=== PATIENT | male | born 1985 | race American Indian/Alaskan Native ===

== ENCOUNTER 2019-05-03 23:58 | Emergency (ER) | payer SELFPAY ==
[2019-05-04 00:23] VITALS: BP 145/88
[2019-05-04] MEDS ORDERED: ASPIRIN 325 MG TAB PO ONE (00:24)
--- NOTE | 2019-05-04 00:47 | XRay Report ---
CHEST 1 VIEW INDICATION: Chest Pain. COMPARISON: None. FINDINGS: Support devices: None. Heart: Normal. Lungs/Pleura: No acute pulmonary or pleural findings. IMPRESSION: 1. No acute findings. Signer Name: Deniz Cruz MD Signed: 05/04/2019 12:42 AM Workstation Name: [id number]
--- NOTE | 2019-05-04 00:50 | Emergency Department Report ---
ED General Adult HPI - General Chief complaint: Chest Pain Stated complaint: CHEST PAIN Time Seen by Provider: 05/04/19 00:22 Source: patient, EMS ( EMS documentation not available at time of chart dictation ), RN notes reviewed, old records reviewed Mode of arrival: Stretcher Limitations: No Limitations - History of Present Illness Initial comments: Patient is a 33-year-old gentleman who is not known to myself previously. He has a history of asthma exacerbation, pneumothorax and chest tube. He presents to the ER today with a complaint of resolved wheezing, and associated central chest tightness and left-sided chest wall tightness. His tightness increases with deep inspiration, and decreases with rest. He denies headache, neck pain, vomiting, diaphoresis, recent aspirin consumption. He denies oral contraceptive use, leg pain or leg swelling, surgery, and he denies DVT and pulmonary embolism risk factors. There is no family history of heart disease or pulmonary embolism that he is aware of. At the moment, all of his symptoms have resolved, and he is currently playing on his cellular phone. -: Gradual Location: chest Radiation: back Severity scale (0 -10): 6 Quality: aching Consistency: now resolved Improves with: none Worsens with: other (Chest discomfort increased with deep inspiration) - Related Data Previous Rx's Medication Instructions Recorded Last Taken Type predniSONE [Deltasone] 50 mg PO QDAY #5 tab 07/16/13 11/26/13 Rx Albuterol Sulfate [Proventil HFA] 1 - 2 puff IH Q4H PRN #1 hfa.aer.ad 11/26/13 Unknown Rx Azithromycin [Zithromax Z-OSMANI] 250 mg PO DAILY #6 tablet 11/26/13 Unknown Rx Fluticasone/Salmeterol [Advair 1 puff IH BID #1 disk.w.dev 11/26/13 Unknown Rx Diskus 250-50 mcg] predniSONE [Prednisone] 40 mg PO DAILY #5 tablet 11/26/13 Unknown Rx Albuterol Sulfate [Proair 90 mcg IH Q4HR PRN #2 aer.pow.ba 05/04/19 Unknown Rx Respiclick] Ibuprofen [Motrin] 600 mg PO Q8H PRN #30 tablet 05/04/19 Unknown Rx Allergies Allergy/AdvReac Type Severity Reaction Status Date / Time iodine Allergy Itching Verified 05/04/19 00:13 ED Review of Systems ROS: Stated complaint: CHEST PAIN Other details as noted in HPI Constitutional: denies: fever Eyes: denies: eye discharge ENT: denies: congestion Respiratory: wheezing Cardiovascular: denies: syncope Gastrointestinal: denies: abdominal pain Genitourinary: as per HPI Musculoskeletal: as per HPI Skin: as per HPI Neurological: as per HPI Psychiatric: as per HPI Hematological/Lymphatic: as per HPI ED Past Medical Hx - Past Medical History Hx Asthma: Yes Additional medical history: intubations - Surgical History Additional Surgical History: bilateral pneumothorax with chest tubes - Social History Smoking Status: Never Smoker Substance Use Type: None - Medications Home Medications: Home Medications Medication Instructions Recorded Confirmed Last Taken Type predniSONE [Deltasone] 50 mg PO QDAY #5 tab 07/16/13 11/26/13 11/26/13 Rx Albuterol Sulfate [Proventil HFA] 1 - 2 puff IH Q4H PRN #1 hfa.aer.ad 11/26/13 Unknown Rx Azithromycin [Zithromax Z-OSMANI] 250 mg PO DAILY #6 tablet 11/26/13 Unknown Rx Fluticasone/Salmeterol [Advair 1 puff IH BID #1 disk.w.dev 11/26/13 Unknown Rx Diskus 250-50 mcg] predniSONE [Prednisone] 40 mg PO DAILY #5 tablet 11/26/13 Unknown Rx Albuterol Sulfate [Proair 90 mcg IH Q4HR PRN #2 aer.pow.ba 05/04/19 Unknown Rx Respiclick] Ibuprofen [Motrin] 600 mg PO Q8H PRN #30 tablet 05/04/19 Unknown Rx ED Physical Exam - General Limitations: No Limitations General appearance: alert, in no apparent distress - Head Head exam: Present: atraumatic, normocephalic - Eye Eye exam: Present: normal appearance, EOMI. Absent: nystagmus - ENT ENT exam: Present: normal exam, normal orophraynx, mucous membranes moist, normal external ear exam - Neck Neck exam: Present: normal inspection, full ROM. Absent: tenderness, meningismus - Respiratory Respiratory exam: Present: normal lung sounds bilaterally. Absent: respiratory distress, wheezes, rales, rhonchi, stridor - Cardiovascular Cardiovascular Exam: Present: normal rhythm, bradycardia, normal heart sounds. Absent: tachycardia, irregular rhythm, systolic murmur, diastolic murmur, rubs, gallop - GI/Abdominal GI/Abdominal exam: Present: soft. Absent: distended, tenderness, guarding, rebound, rigid, pulsatile mass - Rectal Rectal exam: Present: deferred - Extremities Exam Extremities exam: Present: normal inspection, full ROM, other (2+ pulses noted in the bilateral upper and lower extremities. There is no palpable cord. negative Homans sign. Muscular compartments are soft. The pelvis is stable.). Absent: pedal edema, calf tenderness - Back Exam Back exam: Present: normal inspection, full ROM. Absent: tenderness, CVA tenderness (R), CVA tenderness (L), paraspinal tenderness, vertebral tenderness - Neurological Exam Neurological exam: Present: alert, other (There is no facial droop. The tongue is midline. Extraocular movements are intact bilaterally. There is 5 out of 5 strength in bilateral upper and lower extremities. Sensation is intact to light touch bilateral upper and lower extremities. There is a normal gait.). Absent: motor sensory deficit - Psychiatric Psychiatric exam: Present: flat affect - Skin Skin exam: Present: warm, dry, intact, normal color. Absent: rash ED Course Vital Signs 05/04/19 05/04/19 00:12 00:24 Temperature 98.1 F Pulse Rate 55 L 55 L Respiratory 16 Rate Blood Pressure 145/88 [Left] O2 Sat by Pulse 100 Oximetry ED Medical Decision Making - Lab Data Vital Signs 05/04/19 05/04/19 00:12 00:24 Temperature 98.1 F Pulse Rate 55 L 55 L Respiratory 16 Rate Blood Pressure 145/88 [Left] O2 Sat by Pulse 100 Oximetry - EKG Data -: EKG Interpreted by Ri EKG shows normal: sinus rhythm Rate: bradycardia - EKG Data 05/04/19 00:50 Sinus rhythm, bradycardia, 51 bpm, normal intervals, normal axis, high left ventricular voltage, early repolarization. Not consistent with ST elevation myocardial infarction. - Radiology Data Radiology results: pending, report reviewed, image reviewed X-ray of the chest is negative for acute disease - Medical Decision Making Differential diagnosis, including but not limited to: Asthma, bronchitis, GERD, pleurisy Assessment and plan: 33-year-old gentleman with no DVT or pulmonary embolism risk factors, who is low risk by Wells criteria, perc negative, presenting with resolved wheezing, resolved shortness of breath, and resolving chest tightness. He is afebrile with reassuring vital signs. His physical exam is benign and unremarkable. He appears to be in no acute distress at this time. Indeed, when I walked into the room to evaluate the patient, he is engaged in playing on his cellular phone. Bedside transthoracic echocardiogram shows good left ventricular ejection fraction, approximately 55 to 60%, no obvious wall motion abnormalities, and no significant pericardial effusion. This patient does not appear to have an emergent medical condition at this time. He will be given as needed albuterol, ibuprofen, he can follow-up with an outpatient primary care doctor. Critical care attestation.: If time is entered above; I have spent that time in minutes in the direct care of this critically ill patient, excluding procedure time. ED Disposition Clinical Impression: History of asthma, History of pleurisy Disposition: - TO HOME OR SELFCARE Is pt being admited?: No Does the pt Need Aspirin: No Condition: Good Additional Instructions: Avoid consumption of tobacco, smoke products. Take the medications as needed and directed. Follow-up with the primary care doctor within the next week. Return to the emergency room right away with new, worsened or different symptoms, or symptoms not present on the initial emergency room evaluation Referrals: JESUS FLORES MD [Primary Care Provider] - 3-5 Days [facility] [Provider Group] - 3-5 Days [facility] [Provider Group] - 3-5 Days
[2019-05-04 01:02] LABS: Hemoglobin 13.5 gm/dl (11.8-15.2); Mean Corpuscular HGB Conc 34 % (32-34); Mean Corpuscular Volume 90 fl (84-94); Platelet Count 259 K/mm3 (140-440); Red Blood Count 4.45 M/mm3 (3.65-5.03); Red Cell Distribution Width 13.4 % (13.2-15.2)
[2019-05-04 01:07] LABS: BUN/Creatinine Ratio 18; Blood Urea Nitrogen 14 mg/dL (9-20); Calcium 9.2 mg/dL (8.4-10.2); Hemolysis Index 13
[2019-05-04 01:58] LABS: Anisocytosis 1+; Basophils % (Manual) 0 % (0.0-1.8); Platelet Estimate Consistent w Auto; Total Cells Counted 100
== END 2019-05-04 01:00 | disposition home or self-care (01) ==
LOC: ED 23:58
DX: J45.909 Unspecified asthma, uncomplicated (principal); R09.1 Pleurisy; Z91.09 Other allergy status, other than to drugs and biological substances; Z79.899 Other long term (current) drug therapy
CPT/HCPCS: 36415; 71045; 80048; 84484; 85007; 85025; 93005; 93010